=== PATIENT | female | born 1985 | race American Indian/Alaskan Native ===

== ENCOUNTER 2018-05-13 11:05 | Emergency (ER) | payer BC ==
[2018-05-13 11:12] VITALS: RESP 18; TEMP 97.8
[2018-05-13] MEDS ORDERED: DiphenhydrAMINE 50 mg/ml Inj ONE (12:01)
[2018-05-13] MEDS: DiphenhydrAMINE 50 mg/ml Inj IVP ONE (12:09)
--- NOTE | 2018-05-13 12:26 | ED PDOC ---
HPI: Allergic Reaction Time Seen by Provider: 05/13/18 11:37 Chief Complaint (Nursing): Allergic Reaction Past Medical History Vital Signs: Last Vital Signs Temp 97.8 F 05/13/18 11:09 Pulse 91 H 05/13/18 11:09 Resp 18 05/13/18 11:09 BP 168/101 H 05/13/18 11:09 Pulse Ox 99 05/13/18 11:09 - Immunization History Hx Tetanus Toxoid Vaccination: Yes Hx Influenza Vaccination: No - Allergies Allergies/Adverse Reactions: Allergies Allergy/AdvReac Type Severity Reaction Status Date / Time shellfish derived Allergy ANAPHYLAXIS Verified 05/13/18 11:12 - ECG O2 Sat by Pulse Oximetry: 99 Disposition - Disposition
--- NOTE | 2018-05-13 12:59 | ED PDOC ---
HPI: Allergic Reaction Time Seen by Provider: 05/13/18 11:37 Chief Complaint (Nursing): Allergic Reaction Chief Complaint (Provider): Allergic Reaction History Per: Patient History/Exam Limitations: no limitations Onset/Duration Of Symptoms: Days (x2) Current Symptoms Are (Timing): Still Present Additional Complaint(s): 32 year old female with no significant pmhx except an allergy to shellfish presents to the ED for evaluation of swelling around both eyes with some itching onset two days ago. She reports initially taking some Benadryl, but the swelling only improved slightly. Patient then notes taking Xyzal yesterday morning and woke up this morning with worsening swelling to the eyes along with new onset of itching to the back of her head. Otherwise, denies recent change in skin products, new foods, ingestion of shellfish, throat swelling, trouble swallowing, dizziness, palpitations, chest pain, shortness of breath, and rash. PMD: none provided Past Medical History Reviewed: Historical Data, Nursing Documentation, Vital Signs Vital Signs: Last Vital Signs Temp 97.8 F 05/13/18 11:09 Pulse 70 05/13/18 11:20 Resp 18 05/13/18 11:20 BP 148/90 05/13/18 11:20 Pulse Ox 99 05/13/18 12:26 - Medical History PMH: No Chronic Diseases - Surgical History Surgical History: No Surg Hx - Family History Family History: States: Unknown Family Hx - Social History Current smoker - smoking cessation education provided: No Alcohol: None Drugs: Denies - Immunization History Hx Tetanus Toxoid Vaccination: Yes Hx Influenza Vaccination: No - Home Medications Home Medications: Ambulatory Orders Medication Instructions Recorded DiphenhydrAMINE [Benadryl] 25 mg PO Q4H PRN 7 Days cap 05/13/18 predniSONE [Prednisone] 50 mg PO DAILY 5 Days tab 05/13/18 - Allergies Allergies/Adverse Reactions: Allergies Allergy/AdvReac Type Severity Reaction Status Date / Time shellfish derived Allergy ANAPHYLAXIS Verified 05/13/18 11:12 Review of Systems ROS Statement: Except As Marked, All Systems Reviewed And Found Negative Constitutional: Positive for: Other (itching to back of head) Eyes: Positive for: Other (swelling around bilat eyes) ENT: Negative for: Throat Swelling Cardiovascular: Negative for: Chest Pain, Palpitations Respiratory: Negative for: Shortness of Breath Skin: Negative for: Rash Neurological: Negative for: Dizziness Physical Exam - Reviewed Nursing Documentation Reviewed: Yes Vital Signs Reviewed: Yes - Physical Exam Appears: Positive for: Uncomfortable Head Exam: Positive for: ATRAUMATIC, NORMOCEPHALIC Skin: Positive for: Normal Color (except for one small area of raised erythema to posterior aspect of scalp) Eye Exam: Positive for: PERRL, Other (mild edema below bilateral eyes associated with mild erythema; no lacrimation). Negative for: Conjunctival injection ENT: Positive for: Normal ENT Inspection, Pharynx Is (unremarkable), TM Is/Are (non-erythematous, non-bulging) Neck: Positive for: Normal, Painless ROM, Supple Cardiovascular/Chest: Positive for: Regular Rate, Rhythm Respiratory: Positive for: Normal Breath Sounds. Negative for: Accessory Muscle Use, Wheezing, Respiratory Distress Gastrointestinal/Abdominal: Positive for: Normal Exam, Soft. Negative for: Tenderness Lymphatic: Positive for: Normal Exam - ECG O2 Sat by Pulse Oximetry: 99 (RA) Pulse Ox Interpretation: Normal Disposition - Clinical Impression Clinical Impression: Allergic reaction - Disposition Referrals: Adalid Kelley MD [Staff Provider] - Disposition Time: 13:54 Condition: STABLE Additional Instructions: Continue to use Benadryl as needed. F/u with your Primary care physician for further evaluation of cause of allergic reaction. Prescriptions: DiphenhydrAMINE [Benadryl] 25 mg PO Q4H PRN 7 Days cap PRN Reason: Allergy Symptoms predniSONE [Prednisone] 50 mg PO DAILY 5 Days tab Forms: [employer] (Portuguese), [facility] ED School/Work Excuse Print Language: CONGOLESE Medical Decision Making Medical Decision Making: Time: 114 Initial Impression: possible allergic reaction Initial Plan: --[id number]-preg --Benadryl 25mg IVP --Pepcid 20mg IVP --Prednisone 50mg PO --Reevaluation 1353 On reevaluation, patient has some improvement of symptoms. Stable for discharge to follow up with her PMD and prescription for Prednisone. Scribe Attestation: Documented by Josefa Hagan, acting as a scribe for Nena Renee PA-C. Provider Scribe Attestation: All medical record entries made by the Scribe were at my direction and personally dictated by me. I have reviewed the chart and agree that the record accurately reflects my personal performance of the history, physical exam, medical decision making, and the department course for this patient. I have also personally directed, reviewed, and agree with the discharge instructions and disposition.
[2018-05-13 14:39] VITALS: BP 145/90; PULSE 74
[2018-05-13 21:45] VITALS: O2SAT 99
== END 2018-05-13 14:35 | disposition home or self-care (01) ==
LOC: H.ER 11:05
DX: T78.40XA Allergy, unspecified, initial encounter (principal)
CPT/HCPCS: 81025; 96374; 96375; 99283; J1200